=== PATIENT | male | born 1970 ===

== ENCOUNTER 2019-02-13 20:59 | Emergency (ER) | payer MEDICAID ==
[~2019-02-13] VITALS: Ht 175.3 cm; Wt 91.1 kg
[2019-02-13] MEDS ORDERED: HYDROcodone/acetaminophen 5mg/325mg tablet PO ONE (22:50)
[2019-02-13] MEDS ORDERED: NAPR-56 PO (22:50)
[2019-02-13] MEDS ORDERED: PENI250T2 PO (22:50)
[2019-02-13 23:53] VITALS: BP 119/59
== END 2019-02-13 23:15 | disposition home or self-care (01) ==
LOC: ER 21:00
DX: K08.89 Other specified disorders of teeth and supporting structures (principal); F11.90 Opioid use, unspecified, uncomplicated; Z79.899 Other long term (current) drug therapy; Z98.890 Other specified postprocedural states; Z60.2 Problems related to living alone
CPT/HCPCS: 99283

== ENCOUNTER 2025-01-10 16:30 | Emergency (ER) | payer MEDICAID ==
[~2025-01-10] VITALS: Ht 170.2 cm; Wt 83.3 kg
[2025-01-10 16:38] VITALS: TEMP 97.6
[2025-01-10 17:47] VITALS: BP 124/78; PULSE 47; RESP 15; O2SAT 100
== END 2025-01-10 17:47 | disposition home or self-care (01) ==
LOC: ER 16:31 → EEVIPCON 16:31 → ER 17:47
DX: S01.432A Puncture wound without foreign body of left cheek and temporomandibular area, initial encounter (principal); M54.50 Low back pain, unspecified; F11.90 Opioid use, unspecified, uncomplicated; Z98.890 Other specified postprocedural states; Z60.2 Problems related to living alone; W20.8XXA Other cause of strike by thrown, projected or falling object, initial encounter; Y93.89 Activity, other specified; Y92.89 Other specified places as the place of occurrence of the external cause; Y99.8 Other external cause status
CPT/HCPCS: 72100; 99283